=== PATIENT | female | born 1970 | race Caucasian/White ===

== ENCOUNTER 2018-03-31 18:25 | Emergency (ER) | payer BC ==
--- NOTE | 2018-03-31 18:57 | EDM.PDOC ---
ED HPI GENERAL MEDICAL PROBLEM - General Chief Complaint: Chest Pain Stated Complaint: CHEST PAIN AND GOES INTO THE BACK Time Seen by Provider: 03/31/18 18:55 Source of Information: Reports: Patient History Limitations: Reports: No Limitations - History of Present Illness INITIAL COMMENTS - FREE TEXT/NARRATIVE: 48-year-old female who has had intermittent sharp chest pains on the left side radiating back to her shoulder over the past several weeks. Virtually no other symptoms such as nausea or vomiting, diaphoresis, fever, cough, although she does say she has a little shortness of breath with activity which is unusual. The pains only last a few seconds to a minute and are gone. She has them every day. She does not get them while sleeping but they do seem more common while at rest and she has no problem with activity. She has no medical history, no regular doctor, on no medications and is very healthy. Onset: Gradual (Over the past 3 weeks) Location: Reports: Chest Severity: Mild Associated Symptoms: Reports: Shortness of Breath (Mild shortness of breath with activity but not consistent) - Related Data Allergies Allergy/AdvReac Type Severity Reaction Status Date / Time No Known Allergies Allergy Verified 03/31/18 18:52 Home Meds: Home Meds NK [No Known Home Meds] 03/31/18 [History] ED ROS GENERAL - Review of Systems Review Of Systems: See Below Constitutional: Denies: Fever, Chills, Malaise HEENT: Reports: No Symptoms Respiratory: Reports: Shortness of Breath Cardiovascular: Reports: Chest Pain GI/Abdominal: Denies: Abdominal Pain, Nausea, Vomiting Musculoskeletal: Reports: No Symptoms Skin: Reports: No Symptoms Neurological: Reports: No Symptoms Psychiatric: Reports: Other (Under a lot of stress) ED EXAM, GENERAL - Physical Exam Exam: See Below Exam Limited By: No Limitations General Appearance: Alert, No Apparent Distress Eye Exam: Bilateral Eye: Normal Inspection Head: Atraumatic Neck: Supple, Non-Tender Respiratory/Chest: No Respiratory Distress, Lungs Clear, Chest Non-Tender (I could not reproduce pain with palpation of the chest wall) Cardiovascular: Regular Rate, Rhythm Extremities: Normal Inspection. No: Pedal Edema Neurological: Alert, Oriented Psychiatric: Normal Affect, Normal Mood Skin Exam: Warm, Dry EKG INTERPRETATION Rhythm: NSR Course - Vital Signs Last Recorded V/S: Last Vital Signs Temp 97.5 F 03/31/18 18:59 Pulse 67 03/31/18 19:17 Resp 14 03/31/18 19:17 BP 155/98 H 03/31/18 19:17 Pulse Ox 98 03/31/18 19:17 - Orders/Labs/Meds Orders: Active Orders 24 hr Category Date Time Status EKG Documentation Completion [RC] ASDIRECTED Care 03/31/18 19:19 Active Chest 2V [CR] Routine Exams 03/31/18 19:19 Taken EKG 12 Lead [EK] Routine Ther 03/31/18 19:19 Ordered Labs: Laboratory Tests 03/31/18 03/31/18 03/31/18 Range/Units 19:33 19:33 19:33 WBC 6.5 (4.5-11.0) K/uL RBC 4.81 (3.30-5.50) M/uL Hgb 14.4 (12.0-15.0) g/dL Hct 42.4 (36.0-48.0) % MCV 88 (80-98) fL MCH 30 (27-31) pg MCHC 34 (32-36) % Plt Count 282 (150-400) K/uL Neut % (Auto) 58 (36-66) % Lymph % (Auto) 30 (24-44) % Sumner % (Auto) 8 H (2-6) % Eos % (Auto) 4 (2-4) % Baso % (Auto) 0 (0-1) % D-Dimer, Quantitative < 100 (0.0-400.0) ng/mL Sodium 145 (140-148) mmol/L Potassium 4.6 (3.6-5.2) mmol/L Chloride 108 (100-108) mmol/L Carbon Dioxide 28 (21-32) mmol/L Anion Gap 9.0 (5.0-14.0) mmol/L BUN 10 (7-18) mg/dL Creatinine 0.9 (0.6-1.0) mg/dL Est Cr Clr Drug Dosing 73.53 mL/min Estimated GFR (MDRD) > 60 (>60) Glucose 97 (74-106) mg/dL Calcium 8.7 (8.5-10.1) mg/dL Total Bilirubin 0.6 (0.2-1.0) mg/dL AST 20 (15-37) U/L ALT 31 (12-78) U/L Alkaline Phosphatase 143 H (46-116) U/L Troponin I < 0.017 (0.000-0.056) ng/mL Total Protein 7.0 (6.4-8.2) g/dL Albumin 3.7 (3.4-5.0) g/dL Globulin 3.3 (2.3-3.5) g/dL Albumin/Globulin Ratio 1.1 L (1.2-2.2) - Re-Assessments/Exams Free Text/Narrative Re-Assessment/Exam: 03/31/18 20:29 EKG was completely normal. CBC CMP and d-dimer were obtained as well as a two- view chest x-ray all negative. Unsure what the pain is but it certainly isn't cardiac, I was concerned about PE but with d-dimer being completely negative, pulse normal and oxygen normal this is unlikely. She will try daily dose of Prilosec and possibly naproxen and consider a stress test in the near future if symptoms don't improve. Just reassurance may improve the pain. Departure - Departure Time of Disposition: 20:30 Disposition: Home, Self-Care 01 Condition: Good Clinical Impression: Atypical chest pain Instructions: Nonspecific Chest Pain Referrals: PCP,None [Primary Care Provider] - Forms: ED Department Discharge Care Plan Goals: Consider daily Prilosec, possibly daily naproxen and increase activity as tolerated. Try not to worry but also recheck if not improving after a few weeks. Consider a stress test if you continue to have symptoms. - My Orders Last 24 Hours: My Active Orders 03/31/18 19:19 EKG Documentation Completion [RC] ASDIRECTED Chest 2V [CR] Routine EKG 12 Lead [EK] Routine - Assessment/Plan Last 24 Hours: My Active Orders 03/31/18 19:19 EKG Documentation Completion [RC] ASDIRECTED Chest 2V [CR] Routine EKG 12 Lead [EK] Routine
--- NOTE | 2018-04-01 09:28 | CR ---
Chest 2V INDICATION: dyspnea FINDINGS: Negative chest.
== END 2018-03-31 20:15 | disposition home or self-care (01) ==
LOC: JP.ED 18:25
DX: R07.89 Other chest pain (principal)
CPT/HCPCS: 36415; 71046; 71046-26; 80053; 84484; 85025; 85379; 93005; 99285